=== PATIENT | female | born 1970 | race Hispanic/Latino ===

== ENCOUNTER 2016-10-18 20:39 | Emergency (ER) | payer OTHER ==
[~2016-10-18 20:39] MED LIST: Iopamidol 370 76% 100 ML VIAL ONE
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
== END 2016-10-18 22:32 | disposition home or self-care (01) ==
LOC: BURERS 20:39
DX: S13.4XXA Sprain of ligaments of cervical spine, initial encounter (principal); S30.1XXA Contusion of abdominal wall, initial encounter; V44.9XXA Unspecified car occupant injured in collision with heavy transport vehicle or bus in traffic accident, initial encounter; Y92.411 Interstate highway as the place of occurrence of the external cause
CPT/HCPCS: 70450; 72125; 74177; A4216